=== PATIENT | female | born 1950 | race Asian ===

== ENCOUNTER 2021-09-24 19:56 | Emergency (ER) | payer OTHER ==
[~2021-09-24] VITALS: Ht 175.3 cm; Wt 75.8 kg
[2021-09-24 21:30] LABS: POTASSIUM 3.9 mmol/L (3.6-5.2)
[2021-09-24 21:33] LABS: PLATELET COUNT 240 K/uL (152-353)
[2021-09-24 22:57] VITALS: BP 148/84; TEMP 97.8
== END 2021-09-24 22:57 | disposition home or self-care (01) ==
LOC: ED 19:56
PROVIDERS: Emergency Medicine
DX: I10 Essential (primary) hypertension (principal)
CPT/HCPCS: 36415; 80053; 81000; 84484; 85027; 85610; 93005; 99283

== ENCOUNTER 2021-11-02 18:40 | Observation (INO) | payer OTHER ==
[~2021-11-02] VITALS: Ht 175.3 cm; Wt 75.7 kg
[2021-11-02 18:50] VITALS: BP 142/64; TEMP 96.7
[2021-11-02 19:38] LABS: PLATELET COUNT 228 K/uL (152-353)
[2021-11-02 20:08] LABS: PARTIAL THROMBOPLASTIN TIME 25.6 SECONDS (24.5-33.6)
--- NOTE | 2021-11-02 21:30 | NUR ---
CLIENT ADMITTED FROM ER VIA WHEELCHAIR. CLIENT TRANSFERED FROM WHEELCHAIR TO BED WITH 1 PERSON ASSISTANCE AND CANE. CLIENT NOTED UNSTEADY. CLIENT ON ROOM AIR. EXPRESSED HUNGER, PROVIDED CLIENT WITH CHICKEN NOODLE SOUP, PEANUT BUTTER SANDWICH AND GATORAID. APPLIED TELE UNIT TO CLIENT. IV ACCESS NOTED TO LEFT HAND, SALINE LOCKED. ORIENTED CLIENT TO THE ROOM AND THE UNIT, EDUCATED CLIENT TO USE CALL LIGHT.
--- NOTE | 2021-11-02 22:36 | NUR ---
HELD SCHEDULED DOSE OF LOPRESSOR 25MG DUE TO CURRENT HEART RATE PER TELEMETRY IS 56 BRADYCARDIA, NOTE PT WAS JENNY IN ER. WILL MONITOR CLOSELY, NO S/S OF PROBLEMS NOTED.
[2021-11-02 23:10] VITALS: BP 139/82; TEMP 97.8; Ht 175.3 cm; Wt 75.7 kg
[2021-11-03] VITALS: BP 119/52; TEMP 97.9
--- NOTE | 2021-11-03 | NUR ---
SHE HAS AN CIGARETTE ROLLER APPOINTMENT WITH DR ECHOLS IN [place] ON THE , AND HAS AN APPOINTMENT ON Monday11/04/[address] DUNLAP IN [place].
--- NOTE | 2021-11-03 00:49 | NUR ---
HELD 2400 DOSE OF NITRO PASTE DUE TO CURRENT HEART RATE ON TELEMETRY BRADYCARDIA RATE OF 54.
--- NOTE | 2021-11-03 02:33 | NUR ---
RESTING IN BED WITH EYES CLOSED, NO S/S OF PAIN OR DISTRESS NOTED, RESP RATE NONLABORED, IV LOCK INTACT, TELEMETRY IN USE, RAILS UP, BED IN LOW POSITION, CALL LIGHT IN REACH, WILL MONITOR CLOSELY.
--- NOTE | 2021-11-03 03:00 | NUR ---
PT ASKED FOR ASSIST TO GET UP TO BATHROOM. PT ASSISTED X 2 UP TO BATHROOM, URINATED. NOTE PT MORE STEADY ON HER FEET. RESP RATE NONLABORED, DENIES ANY NEEDS AT THIS TIME, IV LOCK INTACT TO L HAND, TELEMETRY IN USE WITH BRADYCARDIA NOTED. WILL MONITOR, PT NOW BACK IN BED, RAILS UP X3, BED IN LOW POSITION, CALL LIGHT IN REACH, ENCOURAGED TO CALL NEEDED OR FOR ASSIST TO BATHROOM.
[2021-11-03 04:00] VITALS: BP 148/60; TEMP 98.6
--- NOTE | 2021-11-03 04:10 | NUR ---
PATIENT REPORTS RECENTLY HAVING ANXIETY ABOUT HER ILLNESSES AND THAT HER OF 10YEARS "DECIDED THAT HE DIDN'T WANT TO BE ANYMORE" AND THAT SHE WANTED TO "WATCH TV TO TAKE HER MIND OFF OF THINGS". REASSURED PATIENT. PROVIDED REMOTE. CLIENT'S HEART RATE 53. BP: 148/60.
[2021-11-03] MEDS ORDERED: COZAAR100 MG PO (05:23)
[2021-11-03] MEDS ORDERED: ATEN25TA21 PO (05:23)
[2021-11-03] MEDS ORDERED: AMLODIPINE BESYLATE PO (05:24)
[2021-11-03] MEDS ORDERED: DIAZ2TAB PO (05:25)
[2021-11-03] MEDS ORDERED: CLON0.1T16 PO (05:26)
[2021-11-03] MEDS ORDERED: XALATAN0.005 % IO (05:27)
[2021-11-03] MEDS ORDERED: BRIMONIDINE0.2 % IO (05:28)
[2021-11-03] MEDS ORDERED: COSOPT1 ML IO (05:29)
[2021-11-03] MEDS ORDERED: HYDR10TA47 PO (05:30)
[2021-11-03] MEDS ORDERED: FURO20TA67 PO (05:32)
[2021-11-03] MEDS ORDERED: KLOR-CON M2020 MEQ PO (05:33)
[2021-11-03] MEDS ORDERED: POTASSIUM CHLO20 ME1 PO (05:34)
--- NOTE | 2021-11-03 05:40 | NUR ---
PT ASSISTED TO AND FROM BATHROOM AND IS NOW BACK IN BED WITH NO DISTRESS NOTED, RESP RATE NONLABORED, ON ROOM AIR, TELEMETRY IN USE WITH BRADYCARDIA NOTED, IV LOCK INTACT, WILL MONITOR, RAILS UP, BED IN LOW POSITION, CALL LIGHT IN REACH, ENCOURAGED TO CALL NEEDED.
--- NOTE | 2021-11-03 07:45 | NUR ---
PT LAYING IN BED WATCHING TV AT THIS TIME. NAD NOTED. PT DENIES ANY NEEDS OR C/O. CALL LIGHT WITHIN REACH, BED LOW AND LOCKED.
[2021-11-03 08:00] VITALS: BP 137/76; TEMP 98.4
--- NOTE | 2021-11-03 10:04 | NUR ---
AM ASSESMENT COMPLETED. PT PROVIDED SNACKS PER HER REQUEST TO TAKE WITH MEDS. PT EDUCATED ON BLOOD WORK AND WHAT TIME. PT LAYING IN BED IN HF WATCHING TV. PT STATES "I JUST CAME BACK FROM THE BATHROOM" PT'S TELEMETRY BOXED NOTED TO BE ON THE BED AND INFORMED PT I NEEDED TO HOOK IT BACK UP AND SHE NEEDED TO KEEP IT ON SO WE CAN MONITOR HER HEART. PT VERBALIZES UNDERSTANDING AT THIS TIME. LUNGS CLEAR THROUGH OUT BILAT, S1/S2 HEARD, POSITIVE BS X4 QUADRANTS. +2 EDEMA NOTED TO BLE. PT DENIES ANY PAIN AT THIS TIME. PT'S CALL LIGHT WITHIN REACH. BED LOW AND LOCKED.
[2021-11-03 12:00] VITALS: BP 144/71; TEMP 98.9
--- NOTE | 2021-11-03 13:40 | NUR ---
PT IV DC'D TIP INTACT NO REDNESS OR SWELLING NOTED. PT GIVEN DISCHARGE INSTRUCTIONS AT THIS TIME. PT INSTRUCTED TO FOLLOW UP WITH HER PCP, AND DR. ECHOLS AT [facility], ALSO TO KEEP THE APPOINTMENT WITH HER CALL WORKER PERSON. CONTINUE ALL ROUTINE HOME MEDICATIONS. KEEP A LOG OF ANY CHEST PAIN OR DISCOMFORT AND TAKE WITH HER TO HER FOLLOW-UPS. PT INSTRUCTED TO RETURN TO ER IF CHEST PAIN REOCCURES. PT VERBALIZES UNDERSTANDING. PT DISCHARGED AT THIS TIME.
== END 2021-11-03 13:58 | disposition home or self-care (01) ==
LOC: ED 18:40 → MED/SURG 20:15
PROVIDERS: ADMIT Hospitalist; ATTEND Internal Medicine
DX: R07.89 Other chest pain (principal); M35.00 Sjogren syndrome, unspecified; F41.8 Other specified anxiety disorders; I25.10 Atherosclerotic heart disease of native coronary artery without angina pectoris; E11.22 Type 2 diabetes mellitus with diabetic chronic kidney disease; I13.0 Hypertensive heart and chronic kidney disease with heart failure and stage 1 through stage 4 chronic kidney disease, or unspecified chronic kidney disease; N18.2 Chronic kidney disease, stage 2 (mild); I50.9 Heart failure, unspecified
CPT/HCPCS: 36415; 80053; 82550; 83880; 84484; 85027; 85610; 85730; 87635; 93005; 96372; 99220; 99284; G0378; J1650; J2270; U0003

== ENCOUNTER 2021-11-24 05:32 | Emergency (ER) | payer OTHER ==
[~2021-11-24] VITALS: Ht 175.3 cm; Wt 75.8 kg
[2021-11-24 05:32] VITALS: TEMP 97.9
[~2021-11-24 05:32] MED LIST: AMLODIPINE BESYLATE PO; ATEN25TA21 PO; BRIMONIDINE0.2 % IO; CLON0.1T16 PO; COSOPT1 ML IO; COZAAR100 MG PO; DIAZ2TAB PO; FURO20TA67 PO; HYDR10TA47 PO; KLOR-CON M2020 MEQ PO; POTASSIUM CHLO20 ME1 PO; XALATAN0.005 % IO
[2021-11-24 06:13] VITALS: BP 166/81
== END 2021-11-24 06:13 | disposition home or self-care (01) ==
LOC: ED 05:32
DX: F41.8 Other specified anxiety disorders (principal); R00.1 Bradycardia, unspecified; I10 Essential (primary) hypertension; M19.90 Unspecified osteoarthritis, unspecified site; M25.59 Pain in other specified joint
CPT/HCPCS: 93005; 99282

== ENCOUNTER 2021-11-26 11:14 | Emergency (ER) | payer OTHER ==
[~2021-11-26] VITALS: Ht 175.3 cm; Wt 79.8 kg
[2021-11-26 11:25] VITALS: BP 139/61; TEMP 98.3
[2021-11-26 12:04] LABS: PLATELET COUNT 193 K/uL (152-353)
[2021-11-26 12:13] LABS: POTASSIUM 3.1 mmol/L (3.6-5.2)
[2021-11-26 12:20] LABS: PARTIAL THROMBOPLASTIN TIME 26.5 SECONDS (24.5-33.6)
== END 2021-11-26 13:12 | disposition home or self-care (01) ==
LOC: ED 11:14
PROVIDERS: Hospitalist
DX: I16.0 Hypertensive urgency (principal); R60.0 Localized edema
CPT/HCPCS: 80053; 82550; 83880; 84484; 85027; 85610; 85730; 93005; 96374; 99284; J1940

== ENCOUNTER 2021-12-14 11:57 | Outpatient (CLI) | payer OTHER ==
[2021-12-14 12:33] LABS: PLATELET COUNT 237 K/uL (152-353)
[2021-12-14 13:01] LABS: POTASSIUM 3.4 mmol/L (3.6-5.2)
== END 2021-12-14 19:01 | disposition home or self-care (01) ==
LOC: LABW 11:57
PROVIDERS: ATTEND Internal Medicine
DX: I12.9 Hypertensive chronic kidney disease with stage 1 through stage 4 chronic kidney disease, or unspecified chronic kidney disease (principal); N18.31 Chronic kidney disease, stage 3a; E87.1 Hypo-osmolality and hyponatremia; R53.83 Other fatigue; Z79.899 Other long term (current) drug therapy; R79.89 Other specified abnormal findings of blood chemistry
CPT/HCPCS: 36415; 80053; 81002; 82024; 82043; 82088; 82306; 82330; 82533; 82550; 82570; 82607; 82728; 82746; 83036; 83540; 83550; 83735; 83835; 83935; 83970; 84100; 84156; 84244; 84439; 84443; 85027; 85652; 86038

== ENCOUNTER 2021-12-26 11:43 | Emergency (ER) | payer OTHER ==
[~2021-12-26] VITALS: Ht 175.3 cm; Wt 73.5 kg
[2021-12-26 11:45] VITALS: TEMP 98.1
[2021-12-26 12:32] LABS: PLATELET COUNT 228 K/uL (152-353)
[2021-12-26 12:53] LABS: PARTIAL THROMBOPLASTIN TIME 23.7 SECONDS (24.5-33.6)
[2021-12-26 18:30] VITALS: BP 127/74
== END 2021-12-26 18:30 | disposition home or self-care (01) ==
LOC: ED 11:43
PROVIDERS: Emergency Medicine
DX: R07.89 Other chest pain (principal)
CPT/HCPCS: 36415; 80053; 81002; 83690; 84484; 85027; 85379; 85610; 85730; 93005; 96365; 96375; 96376; 99284; J1200; J2270; J2405; J3490; Q9963

== ENCOUNTER 2022-02-15 12:33 | Outpatient (CLI) | payer OTHER ==
[2022-02-15 13:04] LABS: PLATELET COUNT 282 K/uL (152-353)
[2022-02-15 13:34] LABS: POTASSIUM 3.7 mmol/L (3.6-5.2)
== END 2022-02-15 18:58 | disposition home or self-care (01) ==
LOC: LABW 12:33
PROVIDERS: ATTEND Internal Medicine
DX: I12.9 Hypertensive chronic kidney disease with stage 1 through stage 4 chronic kidney disease, or unspecified chronic kidney disease (principal); N18.31 Chronic kidney disease, stage 3a; E87.1 Hypo-osmolality and hyponatremia; R53.83 Other fatigue; E83.52 Hypercalcemia; E53.8 Deficiency of other specified B group vitamins; Z79.899 Other long term (current) drug therapy
CPT/HCPCS: 36415; 80053; 81002; 82043; 82306; 82330; 82550; 82570; 82607; 82728; 82746; 83036; 83540; 83550; 83735; 83935; 83970; 84100; 84156; 84166; 84439; 84443; 85027; 85652; 86038

== ENCOUNTER 2022-05-03 12:49 | Outpatient (CLI) | payer OTHER ==
[2022-05-03 13:31] LABS: PLATELET COUNT 283 K/uL (152-353)
[2022-05-03 14:14] LABS: POTASSIUM 3.8 mmol/L (3.6-5.2)
== END 2022-05-03 20:37 | disposition home or self-care (01) ==
LOC: LABW 12:49
PROVIDERS: ATTEND Internal Medicine
DX: I12.9 Hypertensive chronic kidney disease with stage 1 through stage 4 chronic kidney disease, or unspecified chronic kidney disease (principal); N18.31 Chronic kidney disease, stage 3a; E87.1 Hypo-osmolality and hyponatremia; R53.83 Other fatigue; E83.52 Hypercalcemia; M10.09 Idiopathic gout, multiple sites; Z79.899 Other long term (current) drug therapy; R79.89 Other specified abnormal findings of blood chemistry
CPT/HCPCS: 36415; 80053; 81002; 82043; 82306; 82330; 82397; 82550; 82570; 82607; 82652; 82728; 82746; 82955; 83036; 83540; 83550; 83735; 83935; 83970; 84100; 84156; 84165; 84166; 84439; 84443; 84550; 85027; 85041; 85652; 86038; 86140

== ENCOUNTER 2022-11-05 18:26 | Emergency (ER) | payer OTHER ==
[~2022-11-05] VITALS: Ht 175.3 cm; Wt 70.3 kg
[2022-11-05 18:26] VITALS: TEMP 99.1
[2022-11-05 18:59] LABS: POTASSIUM 3.5 mmol/L (3.6-5.2)
[2022-11-05 19:03] LABS: PLATELET COUNT 262 K/uL (152-353)
[2022-11-05 21:12] VITALS: BP 135/79
== END 2022-11-05 21:15 | disposition home or self-care (01) ==
LOC: ED 18:26
PROVIDERS: Family Medicine
DX: R07.9 Chest pain, unspecified (principal); I10 Essential (primary) hypertension
CPT/HCPCS: 80053; 82550; 84484; 85027; 93005; 99283